=== PATIENT | male | born 1955 | race Caucasian/White ===

== ENCOUNTER 2016-12-01 03:43 | Emergency (ER) | payer MEDICARE ==
[~2016-12-01 03:43] MED LIST: IBUP-1827 PO; NAPR500T PO; TRAM50TA2 PO
== END 2016-12-01 04:05 | disposition left against medical advice (07) ==
LOC: SED 03:43
DX: Z53.20 Procedure and treatment not carried out because of patient's decision for unspecified reasons (principal)

== ENCOUNTER 2016-12-05 00:14 | Emergency (ER) | payer MEDICARE ==
[~2016-12-05] VITALS: Ht 180.3 cm; Wt 72.7 kg
[2016-12-05 00:22] VITALS: BP 157/92; PULSE 86; RESP 16; O2SAT 100
== END 2016-12-05 01:00 | disposition left against medical advice (07) ==
LOC: SED 00:14
DX: Z51.89 Encounter for other specified aftercare (principal)